=== PATIENT | female | born 1995 | race Caucasian/White ===

== ENCOUNTER 2022-06-19 16:45 | Inpatient (IN) | payer OTHER ==
[2022-06-19 18:20] VITALS: BMI 33.3
[2022-06-19] MEDS ORDERED: AMPICILLIN - 2 GM in SODIUM CHLORIDE 100 ML IVPB ONE (19:26)
[2022-06-19] MEDS ORDERED: ELECTROLYTE-148 SOLN 1,000 ML IV SCH (19:30)
[2022-06-19] MEDS ORDERED: OXYTOCIN 30 UNITS in 0.9% NS 30 UNIT/500 ML INFUS.BAG IVPB SCH (19:45)
[2022-06-19] MEDS ORDERED: OXYTOCIN 30 UNITS in 0.9% NS 30 UNIT/500 ML INFUS.BAG IVPB ONE (19:53)
[2022-06-19 19:55] LABS: BASO % 0.1 % (0-2.0); EOS % 0.6 % (0-4.5); HEMATOCRIT 32.9 % (32.4-45.2); HEMOGLOBIN 11.4 GM/dL (10.7-15.3); LYMPH % 19.4 % (8-40); MCH 29.5 pg (25.7-33.7); MCHC 34.6 g/dl (32.0-36.0); MEAN CELL VOLUME 85.3 fl (80-96); MEAN PLT VOLUME 8.9 fl (7.5-11.1); MONO % 5.6 % (3.8-10.2); NEUT % 74.3 % (42.8-82.8); PLATELET COUNT 172 10^3/uL (134-434); RBC 3.86 M/mm3 (3.60-5.2); WHITE BLOOD COUNT 10.2 K/mm3 (4.0-10.0)
[2022-06-19 20:03] LABS: INR 0.97 (0.83-1.09); PROTHROMBIN TIME (PATIENT) 11.2 SEC (9.7-13.0)
[2022-06-19 20:06] LABS: ACTIVATED PTT 25.6 SECONDS (25.2-36.5)
[2022-06-19 20:13] LABS: BLOOD UREA NITROGEN 8.8 mg/dL (7-18)
[2022-06-19 20:17] LABS: CREATININE 0.4 mg/dL (0.55-1.3)
[2022-06-19] MEDS: AMPICILLIN - 1 GM in SODIUM CHLORIDE 100 ML IVPB SCH (21:30)
[2022-06-19] MEDS ORDERED: AMPICILLIN SODIUM 1 GM VIAL ONE (21:31)
[2022-06-19] MEDS ORDERED: FENTANYL/BUPIVACAINE/NS/PF - PCEA - 50 ML DISP.SYRIN EP ONE (23:26)
[2022-06-19] MEDS ORDERED: NALOXONE HCL 0.4 MG/ML VIAL IVPUSH PRN (23:28)
[2022-06-19] MEDS ORDERED: AMPICILLIN - 1 GM in SODIUM CHLORIDE 100 ML IVPB SCH (23:30)
[2022-06-19] MEDS ORDERED: FENTANYL/BUPIVACAINE/NS/PF - PCEA - 50 ML DISP.SYRIN EP SCH (23:30)
[2022-06-19] MEDS ORDERED: BUPIVACAINE HCL/PF 0.25% (2.5MG/ML) 10 ML VIAL ONE (23:32)
[2022-06-20] MEDS: AMPICILLIN - 1 GM in SODIUM CHLORIDE 100 ML IVPB SCH ×2 (01:30→05:33)
[2022-06-20] MEDS ORDERED: AMPICILLIN SODIUM 1 GM VIAL ONE (01:35)
[2022-06-20] MEDS ORDERED: OXYTOCIN 20 UNITS in 0.9% NS 20 UNIT/1,000 ML INFUS.BAG IV ONE (03:28)
[2022-06-20] MEDS ORDERED: BENZOCAINE 28 GM HEMORRHOIDAL OINTMENT TP PRN (04:09)
[2022-06-20] MEDS ORDERED: ACETAMINOPHEN 325 MG TABLET (FP) PO PRN (04:09)
[2022-06-20] MEDS ORDERED: BISACODYL 10 MG SUPP.RECT RC PRN (04:09)
[2022-06-20] MEDS ORDERED: METHYLERGONOVINE MALEATE 0.2 MG/1 ML AMP IM PRN (04:09)
[2022-06-20] MEDS ORDERED: oxyCODONE HCL 5 MG TABLET PO PRN (04:09)
[2022-06-20] MEDS ORDERED: WITCH HAZEL 50% (TUCKS) 40 PAD/JAR PAD TP PRN (04:09)
[2022-06-20] MEDS ORDERED: BENZOCAINE 20% 57 GM BOTTLE TP PRN (04:09)
[2022-06-20] MEDS ORDERED: OXYTOCIN 20 UNITS in 0.9% NS 20 UNIT/1,000 ML INFUS.BAG IV SCH (04:15)
[2022-06-20] MEDS ORDERED: oxyCODONE HCL 5 MG TABLET ONE (04:59)
[2022-06-20 08:54] LABS: BASO % 0.2 % (0-2.0); HEMATOCRIT 32.3 % (32.4-45.2); LYMPH % 9.1 % (8-40); MCH 29.2 pg (25.7-33.7); MCHC 34.2 g/dl (32.0-36.0); MEAN CELL VOLUME 85.4 fl (80-96); MEAN PLT VOLUME 8.8 fl (7.5-11.1); MONO % 3.6 % (3.8-10.2); NEUT % 87.1 % (42.8-82.8); PLATELET COUNT 149 10^3/uL (134-434); RBC 3.78 M/mm3 (3.60-5.2); RDW 13.7 % (11.6-15.6); WHITE BLOOD COUNT 17.2 K/mm3 (4.0-10.0)
[2022-06-20] MEDS: PRENATAL VITAMINS W/ FOLIC ACID TABLET (FP) PO SCH (10:30)
[2022-06-20] MEDS: IBUPROFEN 600 MG TABLET (FP) PO PRN ×2 (13:55→18:00)
[2022-06-21 09:30] LABS: BASO % 0.2 % (0-2.0); EOS % 0.8 % (0-4.5); HEMATOCRIT 31.6 % (32.4-45.2); HEMOGLOBIN 10.8 GM/dL (10.7-15.3); MCH 29.4 pg (25.7-33.7); MCHC 34.3 g/dl (32.0-36.0); MEAN CELL VOLUME 85.9 fl (80-96); MEAN PLT VOLUME 8.7 fl (7.5-11.1); MONO % 5.8 % (3.8-10.2); NEUT % 67.2 % (42.8-82.8); PLATELET COUNT 138 10^3/uL (134-434); RBC 3.67 M/mm3 (3.60-5.2); RDW 14.2 % (11.6-15.6); WHITE BLOOD COUNT 10.6 K/mm3 (4.0-10.0)
[2022-06-21] MEDS: PRENATAL VITAMINS W/ FOLIC ACID TABLET (FP) PO SCH (09:37)
[2022-06-21] MEDS: IBUPROFEN 600 MG TABLET (FP) PO PRN ×2 (11:14→20:45)
[2022-06-21] MEDS ORDERED: SENNOSIDES/DOCUSATE COMBO (SENNA PLUS) TABLET (UD) PO PRN (22:00)
[2022-06-22] MEDS: PRENATAL VITAMINS W/ FOLIC ACID TABLET (FP) PO SCH (09:17)
[2022-06-22] MEDS: IBUPROFEN 600 MG TABLET (FP) PO PRN (09:17)
[2022-06-22 10:04] VITALS: BP 109/62; PULSE 62; RESP 18; TEMP 98
== END 2022-06-22 12:10 | disposition home or self-care (01) | DRG 807 ==
LOC: JLDR 16:45 → J3W 06-20 05:27
PROVIDERS: ADMIT Obstetrics & Gynecology; ATTEND Obstetrics & Gynecology
PROC: 10E0XZZ Delivery of Products of Conception, External Approach (ICD-10-PCS; principal; 2022-06-20)
PROC: 0KQM0ZZ Repair Perineum Muscle, Open Approach (ICD-10-PCS; 2022-06-20)
PROC: 0W8NXZZ Division of Female Perineum, External Approach (ICD-10-PCS; 2022-06-20)
DX: O42.02 Full-term premature rupture of membranes, onset of labor within 24 hours of rupture (principal); Z37.0 Single live birth; O99.824 Streptococcus B carrier state complicating childbirth; O70.1 Second degree perineal laceration during delivery; Z3A.39 39 weeks gestation of pregnancy
CPT/HCPCS: 36415; 59409; 80048; 85025; 85610; 85730; 86762; 86780; 86850; 86900; 86901; C9803-CS; U0003; U0005

== ENCOUNTER 2024-06-23 15:05 | Inpatient (IN) | payer OTHER, BC ==
[2024-06-23] MEDS ORDERED: OXYTOCIN 30 UNITS in 0.9% NS 30 UNIT/500 ML INFUS.BAG IVPB ONE (16:37)
[2024-06-23] MEDS: ELECTROLYTE-148 SOLN 1,000 ML IV SCH (16:55)
[2024-06-23] MEDS: OXYTOCIN 30 UNITS in 0.9% NS 30 UNIT/500 ML INFUS.BAG IVPB SCH (17:00)
[2024-06-23 17:23] VITALS: BMI 33.8
[2024-06-23 18:38] LABS: BASO % 0.4 % (0-2.0); EOS % 0.7 % (0-4.5); HEMATOCRIT 34.6 % (32.4-45.2); HEMOGLOBIN 11.4 GM/dL (10.7-15.3); LYMPH % 22.7 % (8-40); MCH 27.9 pg (25.7-33.7); MCHC 32.9 g/dl (32.0-36.0); MEAN CELL VOLUME 84.8 fl (80-96); MEAN PLT VOLUME 8.6 fl (7.5-11.1); MONO % 5.5 % (3.8-10.2); NEUT % 70.7 % (42.8-82.8); PLATELET COUNT 194 10^3/uL (134-434); RBC 4.08 M/mm3 (3.60-5.2); RDW 13.7 % (11.6-15.6); WHITE BLOOD COUNT 11.4 K/mm3 (4.0-10.0)
[2024-06-23 19:03] LABS: POTASSIUM 3.7 mmol/L (3.5-5.1)
[2024-06-23 19:04] LABS: CALCIUM 9.1 mg/dL (8.5-10.1)
[2024-06-23 19:08] LABS: CREATININE 0.4 mg/dL (0.55-1.3)
[2024-06-23] MEDS ORDERED: FENTANYL/BUPIVACAINE/NS/PF - PCEA - 50 ML DISP.SYRIN EP ONE (19:15)
[2024-06-23 20:02] LABS: HIV INTERPRETATION NEGATIVE (NEGATIVE)
[2024-06-23] MEDS ORDERED: OXYTOCIN 20 UNITS in 0.9% NS 20 UNIT/1,000 ML INFUS.BAG IV ONE (21:44)
[2024-06-23] MEDS ORDERED: NALOXONE HCL 0.4 MG/ML VIAL IVPUSH PRN (21:52)
[2024-06-23] MEDS: FENTANYL/BUPIVACAINE/NS/PF - PCEA - 50 ML DISP.SYRIN EP SCH (22:00)
[2024-06-23] MEDS ORDERED: METHYLERGONOVINE MALEATE 0.2 MG/1 ML AMP IM PRN (22:29)
[2024-06-23] MEDS ORDERED: BISACODYL 10 MG SUPP.RECT RC PRN (22:29)
[2024-06-23] MEDS ORDERED: BENZOCAINE 20% 57 GM BOTTLE TP PRN (22:29)
[2024-06-23] MEDS ORDERED: oxyCODONE HCL 5 MG TABLET PO PRN (22:29)
[2024-06-23] MEDS ORDERED: BENZOCAINE 28 GM HEMORRHOIDAL OINTMENT TP PRN (22:29)
[2024-06-23] MEDS ORDERED: WITCH HAZEL 50% (TUCKS) 40 PAD/JAR PAD TP PRN (22:29)
[2024-06-23] MEDS: OXYTOCIN 20 UNITS in 0.9% NS 20 UNIT/1,000 ML INFUS.BAG IV SCH (22:30)
[2024-06-23 23:49] LABS: INR 0.92 (0.83-1.09); PROTHROMBIN TIME (PATIENT) 10.6 SEC (9.7-13.0)
[2024-06-23 23:52] LABS: ACTIVATED PTT 26.9 SECONDS (25.2-36.5)
[2024-06-24] MEDS: ACETAMINOPHEN 325 MG TABLET (FP) PO PRN (02:52)
[2024-06-24 07:55] LABS: BASO % 0.4 % (0-2.0); EOS % 0.4 % (0-4.5); HEMATOCRIT 31.2 % (32.4-45.2); HEMOGLOBIN 10.3 GM/dL (10.7-15.3); MCH 28.2 pg (25.7-33.7); MCHC 33.1 g/dl (32.0-36.0); MEAN CELL VOLUME 85.3 fl (80-96); MEAN PLT VOLUME 8.6 fl (7.5-11.1); MONO % 5.9 % (3.8-10.2); NEUT % 75.3 % (42.8-82.8); PLATELET COUNT 169 10^3/uL (134-434); RBC 3.65 M/mm3 (3.60-5.2); RDW 13.3 % (11.6-15.6); WHITE BLOOD COUNT 15.5 K/mm3 (4.0-10.0)
[2024-06-24] MEDS: IBUPROFEN 600 MG TABLET (FP) PO PRN (08:03)
[2024-06-24] MEDS: PRENATAL VITAMINS W/ FOLIC ACID TABLET (FP) PO SCH (10:48)
[2024-06-24] MEDS: DIPHTH,PERTUSS(ACELL),TET 0.5 ML DISP.SYRIN IM ONE (10:48)
[2024-06-24] MEDS: SENNOSIDES/DOCUSATE COMBO (SENNA PLUS) TABLET (UD) PO PRN (21:13)
[2024-06-25 12:53] VITALS: BP 111/68; PULSE 81; RESP 16; TEMP 98.2
== END 2024-06-25 02:35 | disposition home or self-care (01) | DRG 807 ==
LOC: JLDR 15:05 → J3W 06-24 01:15
PROVIDERS: ADMIT Obstetrics & Gynecology; ATTEND Obstetrics & Gynecology
PROC: 0KQM0ZZ Repair Perineum Muscle, Open Approach (ICD-10-PCS; principal; 2024-06-23)
PROC: 10E0XZZ Delivery of Products of Conception, External Approach (ICD-10-PCS; 2024-06-23)
DX: O48.0 Post-term pregnancy (principal); Z37.0 Single live birth; Z3A.40 40 weeks gestation of pregnancy; O70.1 Second degree perineal laceration during delivery; O24.429 Gestational diabetes mellitus in childbirth, unspecified control
CPT/HCPCS: 36415; 59409; 80048; 82962; 85025; 85610; 85730; 86780; 86850; 86900; 86901; 87389; 90715